=== PATIENT | female | born 2000 | race Caucasian/White ===

== ENCOUNTER 2021-08-05 10:28 | Emergency (ER) | payer BC, SELFPAY ==
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
[2021-08-05 11:17] VITALS: BP 121/63; PULSE 80; RESP 16; TEMP 36.4; O2SAT 100
[2021-08-05 11:48] VITALS: BP 102/58; PULSE 69; RESP 18; TEMP 36.9; O2SAT 100
--- NOTE | 2021-08-05 12:07 | PC.NURSE ---
1152 CONTACTED MEDS, SPOKE WITH ARYAN STATED WILL CONTACT GEAR SHAVER SET UP OPERATOR AND THEY WILL RETURN CALL.
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
[2021-08-05 17:32] LABS: Basophils Percent Auto 0.4 % (0.2-1.2); Eosinophils Absolute Auto 0.1 K/mm3 (0-0.3); Eosinophils Percent Auto 0.6 % (0-4.4); Hematocrit 42.2 % (37.0-47.0); Immature Granulocyte Absolute 0.03 K/mm3 (0.00-0.031); Immature Granulocyte Percent A 0.4 % (0-0.5); Lymphocytes Absolute Auto 2.35 K/mm3 (0.9-3.2); Lymphocytes Percent Auto 27.4 % (18.3-44.2); Mean Corpuscular HGB Conc 33.2 g/dl (32-36); Mean Corpuscular Hemoglobin 29.2 pg (26-34); Mean Corpuscular Volume 87.9 fl (80-100); Monocytes Absolute Auto 0.6 K/mm3 (0.1-0.6); Monocytes Percent Auto 6.5 % (2.6-8.5); Neutrophils Absolute Auto 5.6 K/mm3 (1.3-6.7); Neutrophils Percent Auto 64.7 % (45.5-73.1); Platelet Count Result 331 k/mm3 (150-375); White Blood Count 8.6 K/mm3 (4.5-10.0)
[2021-08-05 17:45] LABS: INR 0.9; Prothrombin Time 12.3 Seconds (11.1-14.7)
[2021-08-05 17:46] LABS: Partial Thromboplastin Time 27.4 SECONDS (22.3-36.8)
[2021-08-05 17:59] LABS: Alanine Aminotransferase 35 U/L (4-35); Albumin Level 4.7 g/dL (3.5-5.1); Alkaline Phosphatase 58 U/L (38-126); Anion Gap 12 mmol/L (8-16); Aspartate Amino Transferase 45 U/L (14-36); Bilirubin,Total 0.9 mg/dL (0.2-1.3); Blood Urea Nitrogen 13 mg/dL (7-17); Calcium 9.7 mg/dL (8.4-10.2); Carbon Dioxide 25 mmol/L (22-30); Chloride 101 mmol/L (98-107); Estimated CRCL calculation 116 ml/min; Estimated Glomerular Filt Rate > 60; Glucose 81 mg/dL (65-110); Potassium 4.7 mmol/L (3.4-5.0); Sodium 138 mmol/L (137-145)
[2021-08-05] MEDS: cefTRIAXone 1 GM VIAL 0.5 GM IM (18:03)
[2021-08-05] MEDS: ONDANSETRON HCL ODT 4 MG TABLET PO (18:04)
[2021-08-05] MEDS: metroNIDAZOLE 250 MG TABLET 500 MG PO (18:04)
[2021-08-05 18:36] LABS: HIV 1/2 Ab P24 Ag Result Negative (Negative)
[2021-08-05] MEDS: EMTRICITABINE-TENOFOVIR 100 MG-150 MG TABLET 2 TAB PO (18:42)
[2021-08-05] MEDS: RALTEGRAVIR 400 MG TABLET PO (18:42)
[2021-08-05] MEDS: DOXYCYCLINE HYCLATE 100 MG TABLET PO (18:46)
[2021-08-05 19:01] LABS: Hepatitis B Surface Antigen Negative (Negative)
[2021-08-05 19:07] LABS: HAV RESULT Negative (Negative); Hepatitis B Core IgM Result Negative (Negative)
[2021-08-05 19:18] LABS: Hepatitis C Virus Antibody Negative (Negative)
[2021-08-06 09:53] LABS: Rapid Plasma Reagin Non-Reactive (NonReactive)
== END 2021-08-05 19:40 | disposition home or self-care (01) ==
PROVIDERS: Physician Assistant; Emergency Provider Emergency Medicine
DX: Z04.41 Encounter for examination and observation following alleged adult rape (principal); M25.461 Effusion, right knee
CPT/HCPCS: 36415; 73562; 80053; 80074; 81025; 85025; 85610; 85730; 86592; 86703; 87491; 87591; 96372; 99285; A9270; G0432; J0696

== ENCOUNTER 2021-08-11 10:18 | Emergency (ER) | payer BC, SELFPAY ==
[2021-08-11 10:23] VITALS: BP 115/73; PULSE 16; RESP 16; TEMP 36.5; O2SAT 100
== END 2021-08-11 10:32 | disposition left against medical advice (07) ==
LOC: ANHED 10:44
DX: R11.10 Vomiting, unspecified (principal)
CPT/HCPCS: 99199

== ENCOUNTER 2021-11-03 16:15 | Emergency (ER) | payer BC, SELFPAY ==
[2021-11-03 16:18] VITALS: BP 124/74; PULSE 61; RESP 18; TEMP 36.2; O2SAT 100
[2021-11-03 16:32] LABS: Basophils Absolute Auto 0.1 K/mm3 (0.0-0.1); Basophils Percent Auto 0.8 % (0.2-1.2); Eosinophils Percent Auto 0.5 % (0-4.4); Hematocrit 43.5 % (37.0-47.0); Hemoglobin 13.9 g/dL (12.0-15.0); Immature Granulocyte Absolute 0.02 K/mm3 (0.00-0.031); Immature Granulocyte Percent A 0.2 % (0-0.5); Lymphocytes Absolute Auto 1.64 K/mm3 (0.9-3.2); Lymphocytes Percent Auto 18.8 % (18.3-44.2); Mean Corpuscular Hemoglobin 28.6 pg (26-34); Mean Corpuscular Volume 89.5 fl (80-100); Mean Platelet Volume 9.6 fl (7.4-10.4); Monocytes Absolute Auto 0.5 K/mm3 (0.1-0.6); Monocytes Percent Auto 5.4 % (2.6-8.5); Neutrophils Absolute Auto 6.5 K/mm3 (1.3-6.7); Neutrophils Percent Auto 74.3 % (45.5-73.1); Platelet Count Result 332 k/mm3 (150-375); Red Blood Count 4.86 M/mm3 (4.2-5.4); White Blood Count 8.7 K/mm3 (4.5-10.0)
[2021-11-03 16:45] LABS: Alanine Aminotransferase 16 U/L (4-35); Albumin Level 4.6 g/dL (3.5-5.1); Alkaline Phosphatase 61 U/L (38-126); Anion Gap 12 mmol/L (8-16); Aspartate Amino Transferase 23 U/L (14-36); Bilirubin,Total 0.9 mg/dL (0.2-1.3); Blood Urea Nitrogen 11 mg/dL (7-17); Carbon Dioxide 21 mmol/L (22-30); Chloride 107 mmol/L (98-107); Estimated CRCL calculation 113 ml/min; Estimated Glomerular Filt Rate > 60; Glucose 105 mg/dL (65-110); Lipase 55 U/L (23-300); Potassium 3.8 mmol/L (3.4-5.0); Sodium 140 mmol/L (137-145)
[2021-11-03 16:48] LABS: Add Urine Microscopic? YES; Appearance Urine Slightly Cloudy (Clear); Bilirubin Urine 1+ (Negative); Blood Urine 2+ (Negative); Color Urine Yellow (Yellow); Glucose Urine UA Negative (Negative); Ketones Urine Negative (Negative); Leukocyte Esterase Ur Negative LEU/UL (Negative); Nitrate Urine Negative (Negative); Protein Urine Negative (Negative); Specific Grav Ur >= 1.030 (1.001-1.035); Urobilinogen Urine 0.2 mg/dL (<2.0); pH Urine 5.5 (5.0-9.0)
[2021-11-03 16:58] LABS: Mucus Urine Heavy /lpf; Squamous Epithelial Cell Urine Many /hpf (Few)
--- NOTE | 2021-11-03 17:00 | ED.ABDPAIN ---
HPI - Abdominal Pain General Chief Complaint: Abdominal Pain Stated Complaint: Right Flank Pain x2 Weeks Time Seen by Provider: 11/03/21 16:51 History of Present Illness HPI narrative: 21-year-old female presents the emergency room with complaints of right upper quadrant pain for 2 weeks. Patient states 5 days ago she was seen [facility], and CT showed that she had cholelithiasis. At that time patient was told to follow-up with general surgeon. Patient has not done so. Patient continues to have right upper quadrant pain. She states that she has had intermittent right upper quadrant pain for 2 years. Pain is accompanied with nausea. Related Data Allergies Allergy/AdvReac Type Severity Reaction Status Date / Time No Known Allergies Allergy Verified 08/05/21 11:24 Review of Systems Review of Systems: CONSTITUTIONAL: Denies fever, chills, or sweats. EYES: Denies visual changes, redness, or discharge. ENT: Denies rhinorrhea, congestion, sore throat, or otalgia. CARDIOVASCULAR: Denies chest pain, palpitations, or edema. RESPIRATORY: Denies cough or dyspnea. GASTROINTESTINAL: Reports right upper quadrant pain, nausea GENITOURINARY: Denies dysuria or hematuria. SKIN: Denies rash or itching. MUSCULOSKELETAL: Denies back pain, joint pain, or myalgia. NEUROLOGIC: Denies headache, numbness, dizziness, or weakness. PSYCHIATRIC: Denies anxiety or depression. Exam Narrative: GENERAL: Well-appearing, well-nourished, and in no acute distress. HEAD: Normocephalic, atraumatic. EYES: PERRLA and EOMI. CHEST: Clear to auscultation. No respiratory distress. No wheezes rales or rhonchi HEART: Regular rate and rhythm. No murmur heard. Normal peripheral pulses. ABDOMEN: Soft, right upper quadrant tenderness, nondistended, normal active bowel sounds, no guarding, EXTREMITIES: Normal range of motion. No edema. SKIN: Warm, dry, no rash. NEURO: No focal deficits. Alert and oriented x3. PSYCH: Normal mood and affect. Course Vital Signs Vital signs: Vital Signs Temperature 36.2 C L 11/03/21 16:18 Pulse Rate 61 11/03/21 16:18 Respiratory Rate 18 11/03/21 16:18 Blood Pressure 124/74 11/03/21 16:18 Pulse Oximetry 100 11/03/21 16:18 Temperature 36.2 C L 11/03/21 16:18 Pulse Rate 61 11/03/21 16:18 Respiratory Rate 18 11/03/21 16:18 Blood Pressure 124/74 11/03/21 16:18 Pulse Oximetry 100 11/03/21 16:18 MDM - Abdominal Pain MDM Narrative Medical decision making narrative: 21-year-old female presented to emergency room with complaints of acute on chronic right upper quadrant pain. Patient states that she was seen at an outside urgent care and was diagnosed with cholelithiasis, and was encouraged to follow-up with a surgeon. Patient states that that she continues to have right upper quadrant pain, and has not followed up with general surgery as of yet. CBC showed no signs of infection, CMP was unremarkable. Differential Diagnosis Differential diagnosis: Likely abdominal pain Medical Records Attestation: I reviewed the patient's medical records. Lab Data Attestation: I reviewed the patient's lab results. Result diagrams: 11/03/21 16:25 11/03/21 16:25 Labs: Lab Results 11/03/21 11/03/21 11/03/21 Range/Units 16:25 16:25 16:32 WBC 8.7 (4.5-10.0) K/mm3 RBC 4.86 (4.2-5.4) M/mm3 Hgb 13.9 (12.0-15.0) g/dL Hct 43.5 (37.0-47.0) % MCV 89.5 (80-100) fl MCH 28.6 (26-34) pg MCHC 32.0 (32-36) g/dl RDW 13.0 (11.5-14.5) % Plt Count 332 (150-375) k/mm3 MPV 9.6 (7.4-10.4) fl Immature Gran % (Auto) 0.2 (0-0.5) % Neut % (Auto) 74.3 H (45.5-73.1) % Lymph % (Auto) 18.8 (18.3-44.2) % [place] % (Auto) 5.4 (2.6-8.5) % Eos % (Auto) 0.5 (0-4.4) % Baso % (Auto) 0.8 (0.2-1.2) % Lymph # (Auto) 1.64 (0.9-3.2) K/mm3 [place] # (Auto) 0.5 (0.1-0.6) K/mm3 Eos # (Auto) 0.0 (0-0.3) K/mm3 Baso # (Auto) 0.
[2021-11-03] MEDS: SODIUM CHLORIDE 0.9% IV 1,000 ML 999 ML IV CONT (17:32)
[2021-11-03] MEDS: DICYCLOMINE HCL INJ 20 MG/2 ML VIAL IM (17:33)
[2021-11-03] MEDS: KETOROLAC 30 MG/ML VIAL (*BKC) IV PUSH (17:33)
[2021-11-03 18:03] VITALS: TEMP 36.2
[2021-11-03 19:00] VITALS: BP 118/64; PULSE 84; RESP 16; O2SAT 99
== END 2021-11-03 19:00 | disposition home or self-care (01) ==
PROVIDERS: Emergency Medicine; Emergency Provider Nurse Practitioner Family
DX: R10.11 Right upper quadrant pain (principal); K80.20 Calculus of gallbladder without cholecystitis without obstruction
CPT/HCPCS: 36415; 80053; 81001; 81025; 83690; 85025; 87086; 87088; 96361; 96372; 96374; 99284; J0500; J1885; J7030

== ENCOUNTER 2021-11-27 10:18 | Emergency (ER) | payer BC, SELFPAY ==
[2021-11-27 10:20] VITALS: BP 106/65; PULSE 67; RESP 18; TEMP 36.4; O2SAT 98
--- NOTE | 2021-11-27 10:54 | PC.NURSE ---
Pt seen walking out of ED doors.
== END 2021-11-28 03:37 | disposition left against medical advice (07) ==
LOC: ANHED 11:04
DX: Z53.21 Procedure and treatment not carried out due to patient leaving prior to being seen by health care provider (principal)
CPT/HCPCS: 99199